=== PATIENT | male | born 1985 | race Caucasian/White ===

== ENCOUNTER 2016-10-23 10:13 | Emergency (ER) | payer MEDICAID, OTHER ==
[~2016-10-23] VITALS: Ht 152.4 cm; Wt 64.0 kg
[~2016-10-23 10:13] MED LIST: HYDR25SU24 PR; LOPE2CAP PO
[2016-10-23 10:27] VITALS: Ht 152.4 cm; Wt 64.0 kg
[2016-10-23] MEDS ORDERED: HYDR25SU23 PR (11:42)
[2016-10-23 11:45] VITALS: BP 146/92; PULSE 101; RESP 14
--- NOTE | 2016-10-23 17:28 | ERD ---
ER Documentation Chief Complaint Date/Time DATE: 10/23/16 TIME: 17:25 Chief Complaint hemorrhoids HPI 31-year-old male patient with no significant past medical history presents to the ED complaining of hemorrhoids pain that started intermittently for the past year. Patient was seen here on November 2015 and states that this is the same pain. Reports that it feels warm. Denies any rectal bleeding, rectal pain, fever, chills, abdominal pain, nausea, vomiting, melena, bloody stools, hematemesis. Patient states that he has not followed up with a general surgeon. Reports that sitting makes his pain worse. ROS All systems reviewed and are negative except as per history of present illness. Medications Home Meds Active Scripts Hydrocortisone Acetate (Anusol-Hc) 25 Mg Supp.rect, 1 SUPP ND BID Y for HEMORROID PAIN/ITCHING, #12 SUPP.RECT Prov:ROSALINDA CHADWICK PA-C 10/23/16 Hydrocortisone Acetate* (Anusol-HC*) 25 Mg/Supp.rect Supp.rect, 1 SUPP ND HS, # 12 SUPP.RECT Prov:STEPHENIE POTTS 11/16/15 Loperamide Hcl* (Imodium*) 2 Mg Capsule, 2 MG PO .AFTER EA LOOSE BM Y for DIARRHEA, #10 TAB Prov:KAZ LAGUNA DO 07/17/15 Allergies Allergies: Coded Allergies: No Known Drug Allergies (Verified Allergy, Unknown, 07/17/15) PMhx/Soc Medical and Surgical Hx: pt denies Surgical Hx History of Surgery: No Hx Neurological Disorder: No Hx Respiratory Disorders: No Hx Cardiac Disorders: No Hx Psychiatric Problems: No Hx Miscellaneous Medical Probl: Yes (HEMORRHOID) Hx Alcohol Use: Yes (SOCIALLY) Hx Substance Use: No Hx Tobacco Use: Yes Smoking Status: Current some day smoker Physical Exam Vitals Vital Signs Date Time Temp Pulse Resp B/P Pulse Ox O2 Delivery O2 Flow Rate FiO2 10/23/16 11:45 101 14 146/92 97 Room Air 10/23/16 10:27 97.9 127 20 153/102 95 Physical Exam Const: [id number], well-nourished. In no acute distress. Head: Atraumatic, normocephalic Eyes: Normal Conjunctiva without injection. No purulent discharge. ENT: Normal external ear, nose. Moist oropharynx without tonsillar exudates. Non -erythematous pharynx. Uvula midline. No drooling. No trismus. Neck: No cervical midline tenderness. Full range of motion. No meningismus. No cervical lymphadenopathy. No JVD. Resp: Clear to auscultation bilaterally. No wheezing, rhonchi, rales, or crackles. No accessory muscle use. No retractions. Cardio: Regular rate and rhythm. No murmurs, rubs or gallops. Abd: Soft, non distended. Normal bowel sounds. No palpable masses. No rebound tenderness. No guarding. Negative McBurney's point. Negative psoas sign. Negative obturator sign. Rectal: Deferred. Patient did not want a rectal exam. He reported that he would follow-up with a primary care physician for further evaluation and treatment with a general surgeon. Skin: No petechiae or rashes Back: No midline tenderness. No CVA tenderness. Ext: No cyanosis, or edema. Neur: Awake and alert. Normal gait. Normal coordination. Psych: Normal Mood and Affect Procedures/MDM This is a 31-year-old male patient with a past medical history of hemorrhoids presents the ED complaining of pain to his hemorrhoids when he sits down. Patient is afebrile and nontoxic-appearing. Rectal exam was deferred. Patient denies any fever. He reports that this is the same pain as his hemorrhoids one year ago. There is low suspicion for perianal abscess, perirectal abscess, deep space infection, gastritis, GERD, peptic ulcer disease, cholecystitis, choledocholithiasis, sepsis, cholangitis, pancreatitis, appendicitis, bowel obstruction, ileus, volvulus, nephrolithiasis, pyelonephritis, hepatitis, perforated viscus, diverticulitis, abdominal hernia, acute abdomen, mesenteric ischemia or other emergent conditions. Discharge medications: Anusol Follow up with primary care physician in 1-2 days for referral to [employer]. Instructed patient to return to the ED sooner for any worsening symptoms. Patient's questions were answered. Patient understood and agreed with discharge plan. Patient discharged stable. Departure Diagnosis: Primary Impression: Acute hemorrhoid Condition: Stable Patient Instructions: Treating Hemorrhoids: Self-Care, Treating Hemorrhoids: Removal, Treating Hemorrhoids: Surgery, Understanding Hemorrhoids, Hemorrhoids Referrals: Jamar ESPINAL,SAID MRAIO WATERS M.D., MATTHEW A. MD [facility] YOU HAVE RECEIVED A MEDICAL SCREENING EXAM AND THE RESULTS INDICATE THAT YOU DO NOT HAVE A CONDITION THAT REQUIRES URGENT TREATMENT IN THE EMERGENCY DEPARTMENT. FURTHER EVALUATION AND TREATMENT OF YOUR CONDITION CAN WAIT UNTIL YOU ARE SEEN IN YOUR DOCTORS OFFICE WITHIN THE NEXT 1-2 DAYS. IT IS YOUR RESPONSIBILITY TO MAKE AN APPOINTMENT FOR FOLOW-UP CARE. IF YOU HAVE A PRIMARY DOCTOR --you should call your primary doctor and schedule an appointment IF YOU DO NOT HAVE A PRIMARY DOCTOR YOU CAN CALL OUR PHYSICIAN REFERRAL HOTLINE AT IF YOU CAN NOT AFFORD TO SEE A PHYSICIAN YOU CAN CHOSE FROM THE FOLLOWING [facility] [address] [facility] [address] [facility] [facility] [address] [facility] [address] [facility] [address] [facility]. [facility] [address] [facility]. [facility] YOU HAVE RECEIVED A MEDICAL SCREENING EXAM AND THE RESULTS INDICATE THAT YOU DO NOT HAVE A CONDITION THAT REQUIRES URGENT TREATMENT IN THE EMERGENCY DEPARTMENT. FURTHER EVALUATION AND TREATMENT OF YOUR CONDITION CAN WAIT UNTIL YOU ARE SEEN IN YOUR DOCTORS OFFICE WITHIN THE NEXT 1-2 DAYS. IT IS YOUR RESPONSIBILITY TO MAKE AN APPOINTMENT FOR FOLOW-UP CARE. IF YOU HAVE A PRIMARY DOCTOR --you should call your primary doctor and schedule and appointment IF YOU DO NOT HAVE A PRIMARY DOCTOR YOU CAN CALL OUR PHYSICIAN REFERRAL HOTLINE AT . IF YOU CAN NOT AFFORD TO SEE A PHYSICIAN YOU CAN CHOSE FROM THE FOLLOWING [facility]: [facility] [address] [place] [address] [facility] [address] [place] [address] [facility] + [facility] [address] [place] [address] [facility] URGENT CARE/SPECIALTIES Additional Instructions: FOLLOW UP WITH YOUR PRIMARY CARE PHYSICIAN TOMORROW for a referral to a general surgeon for further evaluation and treatment.Return to this facility if you are not improving as expected. ROSALINDA CHADWICK PA-C Oct 23, 2016 17:28 ROSALINDA CHADWICK PA-C Oct 23, 2016 17:28
== END 2016-10-23 12:26 | disposition home or self-care (01) ==
LOC: FTE 10:13
DX: K64.9 Unspecified hemorrhoids (principal); F17.210 Nicotine dependence, cigarettes, uncomplicated
CPT/HCPCS: 99283

== ENCOUNTER 2016-12-14 10:03 | Emergency (ER) | payer MEDICAID ==
[~2016-12-14] VITALS: Wt 66.0 kg
[~2016-12-14 10:03] MED LIST changes: +HYDR25SU23 PR
[2016-12-14] MEDS ORDERED: IBUPROFEN 600 MG TAB PO ONE (10:30)
--- NOTE | 2016-12-14 11:20 | RADRPT ---
PROCEDURE: XR Right Ribs Series CLINICAL INDICATION: Right rib pain TECHNIQUE: 2 oblique views of the right ribs were obtained. The images were reviewed on a PACS wor kstation. COMPARISON: None. FINDINGS: Osseous structures: The right ribs appear intact with no fracture or destructive process evident. Lung suresh: The lung suresh are clear. Pleural spaces: No pneumothorax or pleural fluid accumulation is evident. Soft Tissues: Appear unremarkable. IMPRESSION: Unremarkable right rib series. Physician Stew Date Time Electronically viewed and signed by Physician Stew on 12/14/2016 11:20 RH/
[2016-12-14] MEDS ORDERED: IBUP-1542 PO (11:26)
[2016-12-14] MEDS ORDERED: LOPE2CAP PO (11:26)
[2016-12-14] MEDS ORDERED: ANR PR (11:27)
--- NOTE | 2016-12-14 11:31 | ERD ---
ER Documentation Chief Complaint Date/Time DATE: 12/14/16 TIME: 11:28 Chief Complaint RIGHT SIDE/RIB PAIN X3 DAYS, NO INJURY HPI This is a 31-year-old male presents to the ER with right-sided posterior rib pain that started 3 days ago. The pain is dull and worse whenever he coughs or breathes in. It does not radiate anywhere. He has not tried anything for the pain. He denies any chest pain or shortness of breath. Patient recently had a cough however cough has resolved. Cough is dry and constant. He denies any fevers or chills. He denies any trauma to the ribs. Denies any abdominal pain. Patient also complaining of diarrhea over the last 3 days. He has a past medical history of hemorrhoids and states that this is really irritating his hemorrhoids. Patient denies any nausea or vomiting. He has not traveled anywhere. There are no sick contacts at home. ROS 12 point review of systems was done, all negative except per HPI. Medications Home Meds Active Scripts Hard Fat/Phenylephrine* (Anusol*) 1 Supp Supp, 1 SUPP MI Q12 for 3 Days, SUPP Prov:STEPHENIE POTTS 12/14/16 Loperamide Hcl* (Imodium*) 2 Mg Capsule, 2 MG PO .AFTER EA LOOSE BM Y for DIARRHEA, #10 TAB Prov:STEPHENIE POTTS 12/14/16 Ibuprofen* (Motrin*) 600 Mg Tab, 600 MG PO Q6, #30 TAB Prov:STEPHENIE POTTS 12/14/16 Hydrocortisone Acetate (Anusol-Hc) 25 Mg Supp.rect, 1 SUPP MI BID Y for HEMORROID PAIN/ITCHING, #12 SUPP.RECT Prov:ROSALINDA CHADWICK PA-C 10/23/16 Hydrocortisone Acetate* (Anusol-HC*) 25 Mg/Supp.rect Supp.rect, 1 SUPP MI HS, # 12 SUPP.RECT Prov:STEPHENIE POTTS 11/16/15 Loperamide Hcl* (Imodium*) 2 Mg Capsule, 2 MG PO .AFTER EA LOOSE BM Y for DIARRHEA, #10 TAB Prov:KAZ LAGUNA DO 07/17/15 Allergies Allergies: Coded Allergies: No Known Drug Allergies (Verified Allergy, Unknown, 07/17/15) PMhx/Soc Medical and Surgical Hx: pt denies Surgical Hx History of Surgery: No Hx Neurological Disorder: No Hx Respiratory Disorders: No Hx Cardiac Disorders: No Hx Psychiatric Problems: No Hx Miscellaneous Medical Probl: Yes (hemorrhoids) Hx Alcohol Use: Yes Hx Substance Use: Yes (cannabis) Hx Tobacco Use: Yes Smoking Status: Current every day smoker Physical Exam Vitals Vital Signs Date Time Temp Pulse Resp B/P Pulse Ox O2 Delivery O2 Flow Rate FiO2 12/14/16 10:05 97.6 83 17 131/71 98 Physical Exam GENERAL: The patient is well developed and appropriate for usual state of health , in no apparent distress. HEENT: Atraumatic. CHEST: Clear to auscultation bilaterally. There are no rales, wheezes or rhonchi. Patient is tender to palpation along the posterior right rib cage. HEART: Regular rate and rhythm. No murmurs, clicks, rubs or gallops. ABDOMEN: Soft, nontender and nondistended. NEURO: Alert and oriented. SKIN: There is no apparent rash or petechia. The skin is warm and dry. Results 24 hrs Current Medications Medications (Trade) Dose Ordered Sig/Kain Route PRN Reason Start Time Stop Time Status Last Admin Dose Admin Ibuprofen (Motrin) 600 mg ONCE ONCE PO 12/14/16 10:30 12/14/16 10:31 DC 12/14/16 10:44 Procedures/MDM This is a 31-year-old male presents to the ER with right-sided rib pain for the last 3 days. At this time there is no evidence of fracture or dislocation. This is likely musculoskeletal in etiology, pain is reproducible on physical examination is worse with inspiration. She did have a recent cough patient may have pleuritis. Suspicion for acute intrathoracic abnormality is low. She has no chest pain or shortness of breath. In regards to patient's diarrhea this is likely viral in etiology. Patient does not appear dehydrated he is afebrile and is able to tolerate fluids by mouth. Patient will be sent with ibuprofen, Imodium, Anusol. Patient is to follow-up with his primary care doctor within 1- 2 days return to ER sooner if symptoms worsen. My medical decision making shared with the patient understands and agrees with plan. Departure Diagnosis: Primary Impression: Diarrhea Additional Impression: Rib pain Condition: Stable Patient Instructions: Treating Diarrhea Additional Instructions: Call your primary care doctor TOMORROW for an appointment during the next 1-2 days.See the doctor sooner or return here if your condition worsens before your appointment time. STEPHENIE POTTS Dec 14, 2016 11:31
== END 2016-12-14 11:34 | disposition home or self-care (01) ==
LOC: FTE 10:03
DX: R19.7 Diarrhea, unspecified (principal); F17.210 Nicotine dependence, cigarettes, uncomplicated
CPT/HCPCS: 71100; Z7502; Z7610

== ENCOUNTER 2017-03-06 20:19 | Emergency (ER) | payer MEDICAID ==
[~2017-03-06] VITALS: Ht 170.2 cm; Wt 68.7 kg
[~2017-03-06 20:19] MED LIST changes: +ANR PR; +IBUP-1542 PO
[2017-03-06 20:21] VITALS: Ht 170.2 cm; Wt 68.7 kg
[2017-03-06] MEDS ORDERED: KETOROLAC 15 MG INJ IM STA (20:53)
--- NOTE | 2017-03-06 20:53 | ERD ---
ER Documentation Chief Complaint Chief Complaint sore throat, fever HPI This 31 [address] male PT reports [address], starting last night after the gym, pt reports difficulty swallowing, fever chills and pain with swallowing, ROS All systems reviewed and are negative except as per history of present illness. Medications Home Meds Active Scripts Hard Fat/Phenylephrine* (Anusol*) 1 Supp Supp, 1 SUPP DC Q12 for 3 Days, SUPP Prov:KATLYN,STEPHENIE C 12/14/16 Loperamide Hcl* (Imodium*) 2 Mg Capsule, 2 MG PO .AFTER EA LOOSE BM Y for DIARRHEA, #10 TAB Prov:KATLYN,STEPHENIE C 12/14/16 Ibuprofen* (Motrin*) 600 Mg Tab, 600 MG PO Q6, #30 TAB Prov:KATLYN,STEPHENIE C 12/14/16 Hydrocortisone Acetate (Anusol-Hc) 25 Mg Supp.rect, 1 SUPP DC BID Y for HEMORROID PAIN/ITCHING, #12 SUPP.RECT Prov:ROSALINDA CHADWICK PA-C 10/23/16 Hydrocortisone Acetate* (Anusol-HC*) 25 Mg/Supp.rect Supp.rect, 1 SUPP DC HS, # 12 SUPP.RECT Prov:KATLYN,STEPHENIE C 11/16/15 Loperamide Hcl* (Imodium*) 2 Mg Capsule, 2 MG PO .AFTER EA LOOSE BM Y for DIARRHEA, #10 TAB Prov:KAZ LAGUNA DO 07/17/15 Allergies Allergies: Coded Allergies: No Known Drug Allergies (Verified Allergy, Unknown, 03/06/17) PMhx/Soc Medical and Surgical Hx: pt denies Surgical Hx History of Surgery: No Hx Neurological Disorder: No Hx Respiratory Disorders: No Hx Cardiac Disorders: No Hx Psychiatric Problems: No Hx Miscellaneous Medical Probl: Yes (hemorrhoids) Hx Alcohol Use: Yes Hx Substance Use: Yes (cannabis) Hx Tobacco Use: Yes Smoking Status: Never smoker Physical Exam Vitals Vital Signs Date Time Temp Pulse Resp B/P Pulse Ox O2 Delivery O2 Flow Rate FiO2 03/06/17 20:21 100.6 89 20 128/64 100 Vitals stable, triage notes reviewed Physical Exam Const: Well-nourished, well-hydrated, well-appearing 31-year-old male patient in no acute distress Head: Eyes: Normal Conjunctiva PERRLA, EOMI ENT: Lateral tympanic membranes are mildly erythremic, non-bulging with no air-fluid level, nasal mucosa is moist, septum midline with no bleeding points or crests, pharynx is erythremic, tonsils +1, uvula midline without shift rises and falls with pronation Neck: Full range of motion..~ No meningismus. No palpable cervical chain nodes Resp: Rations even and unlabored, clear to auscultation bilaterally no rales wheezes or rhonchi Cardio: Abd: Soft, non tender, non distended. No epigastric tenderness Skin: No petechiae or rashes Back: Ext: Neur: Awake and alert Psych: Normal Mood and Affect Results 24 hrs Current Medications Medications (Trade) Dose Ordered Sig/Kain Route PRN Reason Start Time Stop Time Status Last Admin Dose Admin Ketorolac Tromethamine (Toradol) 15 mg ONCE STAT IM 03/06/17 20:53 03/06/17 20:55 DC 03/06/17 21:06 Acetaminophen (Tylenol Tab) 650 mg ONCE ONCE PO 03/06/17 21:00 03/06/17 21:01 DC 03/06/17 21:06 Procedures/MDM This 31-year-old male patient presents to emergency department for sore throat, pain with swallowing, body aches, and fever 1 day. Patient denies any known sick contacts, reports he is able to drink fluids but has difficulty eating solid foods. Emergency room course today includes history and physical exam, strep pharyngitis is suspected a rapid strep will be obtained, rapid strep is negative for evidence of strep pharyngitis, patient diagnosed with a viral sore throat, prescribed Sudafed, Chloraseptic spray, and ibuprofen. Increase fluids , increase rest, follow-up with primary care physician if symptoms fail to improve as anticipated. Patient is stable with no new complaints during ER course, clinically there is no current evidence to suggest meningitis, tonsillar abscess, strep pharyngitis, acute abdomen or any other emergent condition appearing to require further evaluation or hospitalization. I feel the patient is stable for discharge at this time. I have discussed results, examination findings, the treatment plan with the patient and family present prior to discharge. Indications for emergent reevaluation, side effects of medication were also discussed. All questions were answered. Patient verbalizes understanding and agrees with plan of care. Departure Diagnosis: Primary Impression: Viral pharyngitis Condition: Good Patient Instructions: Pharyngitis, Viral Additional Instructions: Thank you for for coming to [facility] for your care today. Please ask your nurse or provider if you have questions about your care today and do not leave until all your questions have been answered. Please use any medications given as directed and follow-up with your doctor (or the doctor you were referred to) in the next 2-3 days. If you do not have a primary care doctor you may follow up at the [facility] (listed below). You may also use motrin and tylenol as needed for fever and/or pain unless instructed otherwise by your provider or nurse. Indications for more urgent follow-up have been discussed, but you may return to the Emergency Department at ANY time for any worrisome or worsening symptoms. If you have abdominal pain, please know that no test or exam you received is perfect and you should follow up within 8 hours for continued pain. If you had any imaging studies today, such as an X-Ray or CT Scan, these studies will be reviewed later by a radiologist. You will be called if there are important findings that were not identified today, so make sure the contact information you provided at registration is correct. If you received any narcotic pain control medicine today, such as Vicodin, Morphine or Dilaudid, your coordination and judgment may be affected for a number of hours. Please do not drive or operate heavy machinery, and you may want someone to assist you at home. If you were given a prescription for narcotic medication, be aware that it is very addictive- use sparingly and only if necessary. MARIO GILLIAM Mar 06, 2017 20:53
[2017-03-06] MEDS ORDERED: ACETAMINOPHEN 325 MG TAB PO ONE (21:00)
[2017-03-06] MEDS ORDERED: PSEU30TA38 PO (22:15)
[2017-03-06] MEDS ORDERED: PHEN30SP8 MM (22:17)
[2017-03-06] MEDS ORDERED: IBUP-1542 PO (22:18)
[2017-03-06 22:27] VITALS: BP 118/64; PULSE 66; RESP 16; TEMP 98.3
== END 2017-03-06 22:28 | disposition home or self-care (01) ==
LOC: FTE 20:19
DX: J02.9 Acute pharyngitis, unspecified (principal); Z87.891 Personal history of nicotine dependence
CPT/HCPCS: 87880; 96372; J1885; Z7502; Z7610

== ENCOUNTER 2018-05-21 10:03 | Emergency (ER) | payer SELFPAY ==
[~2018-05-21 10:03] MED LIST changes: +PHEN30SP8 MM; +PSEU30TA38 PO
== END 2018-05-21 10:15 | disposition left against medical advice (07) ==
LOC: E/R 10:03
DX: Z53.21 Procedure and treatment not carried out due to patient leaving prior to being seen by health care provider (principal)